=== PATIENT | female | born 1970 | race Caucasian/White ===

== ENCOUNTER 2018-07-23 19:32 | Emergency (ER) | payer SELFPAY ==
[2018-07-23 19:34] VITALS: BP 143/88; PULSE 66; RESP 18; TEMP 37.3; O2SAT 97; BMI 18.8
[2018-07-23 19:36] VITALS: BP 143/88; PULSE 66; RESP 18; TEMP 37.3; O2SAT 97
--- NOTE | 2018-07-23 19:52 | CT_ITS ---
STUDY: CT ABDOMEN AND PELVIS WITHOUT CONTRAST REASON FOR EXAM: Female, 48 years old. Left flank pain. History of tubal ligation and hernia repair. RADIATION DOSAGE (If Supplied By Facility): CTDIvol = ( 6.04 ) mGy, DLP = ( 283.89 ) mGycm TECHNIQUE: Transaxial images were obtained from the dome of the diaphragm to the symphysis pubis without oral contrast, and without intravenous contrast. Sagittal and coronal images were reconstructed. Individualized dose optimization techniques were used for this CT. COMPARISON: None. FINDINGS: The visualized lung bases are unremarkable. The visualized portions of the heart are within normal limits. Normal liver. Normal gallbladder and extrahepatic biliary system. Normal spleen. Normal pancreas. Normal bilateral adrenal glands. Normal size of the right kidney. 3 mm nonobstructing stone in the upper pole of the right kidney without hydronephrosis or ureteral stones. Normal size of the left kidney with 5 nonobstructing stones in the upper mid and lower pole of the left kidney the larger stones are approximately 3 mm. There is moderate hydronephrosis of the left kidney secondary to a 5.5 x 3.1 mm stone in the distal left ureter 5 cm above the left ureterovesicular junction. Food filled stomach. Normal small intestine. Normal colon. The appendix is visualized and appears normal. There is diffuse atherosclerotic calcification of the abdominal aorta, without a demonstrated aneurysm. Normal inferior vena cava. Normal retroperitoneum. Normal urinary bladder. Status post tubal ligation. Negative for pelvic mass or free fluid of the pelvis. Normal abdominal wall. Normal osseous structures. CT/Abdomen/Pelvis without Cont IMPRESSION: Moderate hydronephrosis of the left kidney secondary to a 5.5 x 3.1 mm stone in the distal left ureter 5 cm above the left ureterovesicular junction. There are 5 additional nonobstructing stones of the left kidney. The largest are 3 mm. 3 mm nonobstructing stone in the upper pole of the right kidney without hydronephrosis or ureteral stones. Status post tubal ligation. Otherwise normal abdomen and pelvic CT exam. Electronically Signed: Jewell Morales MD at 20:54 EST , Service support ,
--- NOTE | 2018-07-23 20:04 | ED.VISSUMM ---
- ER Visit Summary Date of Service: 07/23/18 Chief Complaint: Flank pain History of Present Illness: The patient is a 48 F presents to the emergency department sudden onset flank pain. Patient has a history of kidney stone, but is never required lithotripsy or stenting. She states that about an hour ago, she had a sharp stabbing pain in her left back that comes and goes. She is been nauseated with one episode of vomiting. She denies any fevers or chills. She has had some increased urinary frequency but denies any dysuria or hematuria. The patient is otherwise healthy. She takes no daily medications. She has had prior tubal ligation. Physical Examination: Vital signs reviewed General: Well-nourished, well-developed Head: Normocephalic, atraumatic Eyes: Pupils equal and reactive, extraocular muscles intact Neck, supple, no lymphadenopathy Heart: Regular rate and rhythm Respiratory: No distress, clear bilaterally Abdomen: Soft, nontender, nondistended, no peritoneal signs Back: Nontender Extremities: Nontender, no edema, no cords Skin: Normal color no rash Neuro: Alert and oriented, no focal or lateralizing deficits Test Results: [] Emergency Department Course and Treatment: The patient presents with sudden onset left flank pain. She declined any opiate analgesics. IV was established. She was given fluids, Zofran, Toradol. On reevaluation, she is totally pain-free. Screening labs are relatively unremarkable. Her urine does not show evidence of infection, but there is some scant bacteria. I will add a culture. CT demonstrates a 5.5 mm stone in the distal ureter causing mild hydro-. I did discuss this with the patient. She wants to attempt outpatient therapy. I feel this is reasonable. She is pain-free currently. I will give her outpatient neurology follow-up. She was counseled concerning symptoms and reasons to return. She will be discharged home. Treatment Plan: [] Disposition: Discharge Impression: 1. 5 mm left kidney stone This note was generated with [employer] dictation software. It may contain incorrect words, spelling, and punctuation that were not noted in review of the chart prior to signing ED Disposition - Plan for ED Patient: Instructions: ED Stone Renal W Colic Prescriptions: Ondansetron [Zofran Odt] 4 mg PO Q8H PRN PRN #10 tab PRN Reason: Nausea Ketorolac [Toradol] 10 mg PO Q6H PRN #30 tab PRN Reason: Pain Referrals: Maryse Pettit MD [STAFF PHYSICIAN] -
[2018-07-23] MEDS: 0.9% Normal Saline 1,000 ML 250 ML IV (20:14)
[2018-07-23] MEDS: Ondansetron 4 MG/2 ML Vial IV (20:14)
[2018-07-23] MEDS: Ketorolac 30 MG/ML Syringe IV (20:15)
[2018-07-23 20:31] LABS: Absolute Neutrophil Count 8.3 X10^3/uL (2.0-7.7); Basophil# 0.06 X10^3/uL; Basophil% 0.5 % (0-1); Eosinophil# 0.11 X10^3/uL; Eosinophils% 0.9 % (0-5); Hematocrit 42.9 % (37-47); Hemoglobin 14.5 g/dl (12.0-15.0); Lymphocyte % 25.5 % (19-41); Mean Corp Hgb Conc 33.8 g/gl (32-36); Mean Corpuscular Volume 88.8 fL (81-99); Monocyte# 0.83 X10^3/uL; Monocyte% 6.6 % (0-10); Neutrophil # 8.33 X10^3/uL (2.7-7.7); Neutrophil % 66.3 % (47-70); Platelet Count 189 K/mm3 (150-450); Red Blood Count 4.83 M/mm3 (4.2-5.4); White Blood Count 12.6 K/mm3 (4.4-11.0)
[2018-07-23 20:37] LABS: POSITIVE COUNT NO; POSITIVE DIFFERENTIAL NO; POSITIVE MORPHOLOGY NO
[2018-07-23 20:44] VITALS: BP 143/88; PULSE 64; RESP 16; TEMP 37.3; O2SAT 97
[2018-07-23 20:46] LABS: Mucous, Urine 0 SEEN /hpf (<or=2+)
[2018-07-23 20:49] LABS: Color, Urine Yellow (Yellow); Glucose, Dipstick Normal (Normal); Ketone-Dipstick 5 mg/dl (Negative); Leukocyte Esterase-Dipstick 25 /ul (Negative); Nitrite-Dipstick Negative (Negative); Occult Blood-Urine 250 /ul (Negative); Protein-Dipstick 30 mg/dl (Negative); Specific Gravity, Urine 1.015 (1.002-1.030); Urine Bilirubin Dipstick Negative (Negative); Urine Clarity Cloudy (Clear); Urine Urobilinogen 1 mg/dl (Normal)
[2018-07-23 20:50] LABS: Anion Gap 10 (5-15); BUN 11 mg/dL (7-18); BUN/Creat Ratio 8.1 RATIO (10-20); Calcium,Total 9.2 mg/dL (8.5-10.1); Chloride 107 mmol/L (98-107); Creatinine, Serum 1.35 mg/dL (0.55-1.02); EST Glomerular Filtration Rate 44 mL/min (>60); Est Glom Filt Rate - Afr Amer 54 mL/min (>60); Estimated Creatinine Clearance 41.62 ml/min; Glucose 92 mg/dL (74-106); Potassium 3.5 mmol/L (3.5-5.1); Sodium Level 142 mmol/L (136-145)
[2018-07-23 21:00] LABS: Red Blood Cells-Urine 50-100 SEEN /hpf (0-5)
[2018-07-23 21:01] LABS: Squamous Epithelial Cells - UA 0-5 SEEN /hpf (5-10); White Blood Cells 5-10 SEEN /hpf (0-5)
[2018-07-23 21:02] LABS: Bacteria RARE /hpf (None Seen)
[2018-07-23 21:18] VITALS: BP 98/50; PULSE 69; RESP 15; O2SAT 97
== END 2018-07-23 21:36 | disposition home or self-care (01) ==
LOC: ED 20:01
PROVIDERS: Emergency Provider Emergency Medicine
DX: N20.0 Calculus of kidney (principal); Z98.51 Tubal ligation status; Z87.442 Personal history of urinary calculi; Z72.0 Tobacco use
CPT/HCPCS: 74176; 80048; 81001; 85025; 87086; 87088; 96361; 96374; 96375; 99282; J7030; A4216; J2405

== ENCOUNTER 2018-12-29 14:34 | Emergency (ER) | payer SELFPAY ==
[2018-12-29 14:34] VITALS: BP 146/89; PULSE 60; RESP 16; TEMP 36.6; O2SAT 100; BMI 18.5
[2018-12-29 14:50] VITALS: BP 164/83; PULSE 65; RESP 14; O2SAT 98
--- NOTE | 2018-12-29 15:04 | CT_ITS ---
STUDY: CT ABDOMEN AND PELVIS WITHOUT CONTRAST REASON FOR EXAM: Female, 48 years old. Abdominal pain RADIATION DOSAGE (If Supplied By Facility): CTDIvol = ( 6.04 ) mGy, DLP = ( 283.89 ) mGycm TECHNIQUE: Transaxial images were obtained from the dome of the diaphragm to the symphysis pubis without oral contrast, and without intravenous contrast. Sagittal and coronal images were reconstructed. Individualized dose optimization techniques were used for this CT. COMPARISON: 07/23/2018 FINDINGS: The visualized lung bases are unremarkable. The visualized portions of the heart are within normal limits. Normal liver. Normal gallbladder and extrahepatic biliary system. Normal spleen. Normal pancreas. Normal bilateral adrenal glands. Normal right kidney. Multiple nonobstructing left renal stones. 3 mm obstructing stone at the distal left ureter with mild ureteral dilatation and hydronephrosis. Normal visualized stomach. Normal small intestine. Normal colon. The appendix is visualized and appears normal. There is diffuse atherosclerotic calcification of the abdominal aorta, without a demonstrated aneurysm. Normal inferior vena cava. Normal retroperitoneum. Normal urinary bladder. Status post bilateral tubal ligation. Normal abdominal wall. Normal osseous structures. CT/Abdomen/Pelvis without Cont IMPRESSION: 3 mm obstructing stone at the distal left ureter with mild ureteral dilatation and hydronephrosis. Electronically Signed: Carlos Griffith MD at 15:40 EDT Tel , Service support ,
--- NOTE | 2018-12-29 15:06 | ED.VISSUMM ---
- ER Visit Summary Date of Service: 12/29/18 Chief Complaint: Left flank pain History of Present Illness: The patient is a 48 F presenting with left flank pain. She states this started earlier today. She states that it progressively worsened throughout the day. She has a history of kidney stones and states this feels similar. She tried Tylenol at home which has improved her pain. She has nausea with no vomiting. She denies fever. Denies dysuria. Denies other complaints. Physical Examination: Vitals are stable. Patient is afebrile. Alert no acute distress. HEENT exam is unremarkable. Neck is supple. Lungs are clear and equal bilaterally. Heart is regular rate and rhythm. Abdomen is soft and left lower quadrant tenderness with no rebound or guarding. Back: Left CVA tenderness Extremities are unremarkable. Skin is warm and dry. Remainder of exam is unremarkable. Emergency Department Course and Treatment: Patient given Toradol, Zofran IV. CT flank shows 3 mm obstructing stone at the distal left ureter with mild ureteral dilatation and hydronephrosis. Urinalysis shows 0-5 white blood cells, 25-50 red blood cells. On repeat evaluation, patient feels much improved. She is given prescription for Naprosyn and Zofran. Advised to follow-up with Dr. Daly. Advised to return ED for worsening complaints. Disposition: Discharge Impression: Urolithiasis This note was generated with [employer] dictation software. It may contain incorrect words, spelling, and punctuation that were not noted in review of the chart prior to signing ED Disposition - Plan for ED Patient: Instructions: KIDNEY STONE w/ Colic Prescriptions: Naproxen [Naprosyn] 500 mg PO BID PRN #20 tab Prescription Printed Ondansetron [Zofran Odt] 4 mg PO Q8H PRN PRN #10 tab PRN Reason: Nausea Prescription Printed Referrals: Vipul Daly MD [STAFF PHYSICIAN] - Care Physician,No Primary [NON-STAFF] -
[2018-12-29] MEDS: Ketorolac 30 MG/ML Syringe IV (15:11)
[2018-12-29] MEDS: Ondansetron 4 MG/2 ML Vial IV (15:11)
--- NOTE | 2018-12-29 15:59 | ED.DEP ---
ED Disposition - Plan for ED Patient: Instructions: KIDNEY STONE w/ Colic Prescriptions: Naproxen [Naprosyn] 500 mg PO BID PRN #20 tablet Ondansetron [Zofran Odt] 4 mg PO Q8H PRN PRN #10 tablet PRN Reason: Nausea Referrals: Care Physician,No Primary [NON-STAFF] - Vipul Daly MD [STAFF PHYSICIAN] -
[2018-12-29 16:02] LABS: Mucous, Urine 0 SEEN /hpf (<or=2+)
[2018-12-29 16:09] LABS: Color, Urine Yellow (Yellow); Glucose, Dipstick Normal (Normal); Ketone-Dipstick 5 mg/dl (Negative); Leukocyte Esterase-Dipstick 25 /ul (Negative); Nitrite-Dipstick Negative (Negative); Occult Blood-Urine 250 /ul (Negative); Protein-Dipstick Negative (Negative); Urine Bilirubin Dipstick Negative (Negative); Urine Clarity Clear (Clear); Urine Urobilinogen Normal (Normal)
[2018-12-29 16:20] LABS: Red Blood Cells-Urine 25-50 SEEN /hpf (0-5)
[2018-12-29 16:21] LABS: Bacteria RARE /hpf (None Seen); Squamous Epithelial Cells - UA 0-5 SEEN /hpf (5-10); White Blood Cells 0-5 SEEN /hpf (0-5)
[2018-12-29 16:34] VITALS: BP 126/69; PULSE 71; RESP 16; O2SAT 98
== END 2018-12-29 16:35 | disposition home or self-care (01) ==
PROVIDERS: Emergency Medicine; Emergency Provider Emergency Medicine; Family Provider Nurse Practitioner Family; PCP Nurse Practitioner Family
DX: N13.2 Hydronephrosis with renal and ureteral calculous obstruction (principal); Z87.442 Personal history of urinary calculi; Z72.0 Tobacco use
CPT/HCPCS: 74176; 81001; 96374; 96375; 99283; J7030; A4216; J2405